=== PATIENT | male | born 1990 | race Two or more races ===

== ENCOUNTER 2020-01-18 01:51 | Inpatient (IN) | payer OTHER ==
[2020-01-18] VITALS (11 sets, daily range): BP systolic 97–146; BP diastolic 43–82
[~2020-01-18] VITALS: Ht 182.9 cm; Wt 133.8 kg
--- NOTE | 2020-01-18 01:55 | NUR ---
ED Nurse Note: Pt brought into ED from home by KALI RA 66 for c/o fentanyl overdose. Per EMS, pt used unknown amount of fentanyl and was found face down and unconscious in the kitchen. STEPHYD had to start ventilating pt in the field. STEPHYD gave pt 4mg narcan. Per EMS, pt also was given narcan nasally by girlfriend which made pt nose bleed prior to EMS arrival. Dried blood noted to pt nares/face. No trauma noted. Pt is breathing labored at this time, STEPHYD stopped ventilations by the time they reached the ED and pt was breathing on his own. Pt is aaox2. He is able to answer questions but is lethargic. Pt is not aware of what is going on and doesn't remember passing out. Pt connected to front desk monitor and into gown. EKG and ERMD bedside.
--- NOTE | 2020-01-18 02:00 | NUR ---
ED Nurse Note: After placement on decontaminator, pt oxygen saturation in low 80's. Pt placed on 15L oxygen via NRB. Pt oxygen saturation rised to 96% on NRB. Pt is more awake at this time, but unaware of what happened. Will continue to monitor pt.
--- NOTE | 2020-01-18 02:08 | Emergency Room Report ---
History of Present Illness General Chief Complaint: Overdose Source: Patient, EMS Present Illness HPI EMS was called by the patient's girlfriend. He has been using fentanyl. She tried to administer Narcan nasally but he started bleeding. EMS had to use a bag valve mask on the patient. They gave him 2 doses of IM Narcan and then 2 doses of IV. He is breathing on his own at this time and they do not need to continue the [id number]. The patient is answering questions. The patient denies any use of other drugs. The patient denies intent of self-harm. No fevers, chills, sore throat, chest pain, palpitations, nausea, vomiting, diarrhea, dysuria, abdominal pain, shortness of breath, joint pain, rashes, depression, anxiety, visual changes, dizziness, headache. Allergies: Coded Allergies: No Known Allergies (Unverified , 01/18/20) COVID-19 Screening Contact w/high risk pt: No Recent Travel to affected area: No Experienced COVID-19 symptoms?: No Patient History Past Medical History: see triage record Past Surgical History: other - Back surgery Social History: Reports: smoking, drug use - Fentanyl, see tox screen Reviewed Nursing Documentation: PMH: Agreed; PSxH: Agreed Nursing Documentation-PMH Past Medical History: Deferred Review of Systems All Other Systems: negative except mentioned in HPI Physical Exam Vital Signs Date Time Temp Pulse Resp B/P (MAP) Pulse Ox O2 Delivery O2 Flow Rate FiO2 01/18/20 01:51 97.9 115 19 146/72 (96) 96 Room Air Sp02 EP Interpretation: reviewed, normal General Appearance: no apparent distress, lethargic, obese Head: normocephalic Eyes: bilateral eye normal inspection, bilateral eye PERRL, bilateral eye EOMI ENT: moist mucus membranes Neck: supple Respiratory: chest non-tender, lungs clear, normal breath sounds, other - Slight tachypnea Cardiovascular #1: tachycardia Cardiovascular #2: 2+ radial (R) Gastrointestinal: normal inspection, non tender, no mass, non-distended, decreased bowel sounds, overweight Genitourinary: no CVA tenderness Musculoskeletal: back normal, normal range of motion, no calf tenderness Neurologic: alert, motor strength/tone normal, processing spec III-XII nml as tested, DTRs symmetric, oriented x3, sensory intact, cerebellar normal, speech normal Psychiatric: no suicidal/homicidal ideation, depressed affect Skin: no rash, warm/dry Medical Decision Making Diagnostic Impression: Primary Impression: Drug overdose Qualified Codes: T50.901A - Poisoning by unspecified drugs, medicaments and biological substances, accidental (unintentional), initial encounter Additional Impressions: Pneumonia Qualified Codes: J18.9 - Pneumonia, unspecified organism Hypoxia Renal failure Qualified Codes: N17.9 - Acute kidney failure, unspecified Rhabdomyolysis Qualified Codes: M62.82 - Rhabdomyolysis ER Course Patient presents after responding to Narcan in the field with alleged fentanyl overdose. Differential includes acute myocardial infarction, fentanyl excess, electrolyte imbalance, aspiration pneumonia amongst others. Patient evaluated with EKG, chest x-ray and labs. Patient placed on a youth nutritional monitor. We may to need to administer further doses of Narcan. EKG sinus tachycardia with nonspecific ST-T wave changes. No injury. White count elevated. Renal failure. Bicarbonate low. Urine tox screen negative. Elevated CPK. Patient hypoxemic. Awake. Increased O2. 205 Chest x-ray with left-sided infiltrate. Blood cultures and antibiotics begun. Elevated lactic acid. Fluids begun. Normal mentation and good capillary fill. X-ray more consistent with aspiration. Patient improved on oxygen. Due to elevated CPK and renal failure alkalinization of urine instituted. Patient admitted to telemetry. COVID testing done. Suspicion is low. (Of note patient's girlfriend in the emergency department presumptively secondary to cyanide. Her tox screen was positive for methamphetamine. The patient denies any question of whether anyone intended them harm. [employer] notified. The fact that his tox screen was negative for methamphetamine makes the possibility that she ingested a different drug that then he did.) Laboratory Tests Test 01/18/20 02:00 01/18/20 03:30 01/18/20 03:40 White Blood Count 19.0 K/UL (4.8-10.8) H Red Blood Count 5.38 M/UL (4.70-6.10) Hemoglobin 16.6 G/DL (14.2-18.0) Hematocrit 46.3 % (42.0-52.0) Mean Corpuscular Volume 86 FL (80-99) Mean Corpuscular Hemoglobin 30.8 PG (27.0-31.0) Mean Corpuscular Hemoglobin Concent 35.8 G/DL (32.0-36.0) Red Cell Distribution Width 10.9 % (11.6-14.8) L Platelet Count 346 K/UL (150-450) Mean Platelet Volume 7.0 FL (6.5-10.1) Neutrophils (%) (Auto) % (45.0-75.0) Lymphocytes (%) (Auto) % (20.0-45.0) Monocytes (%) (Auto) % (1.0-10.0) Eosinophils (%) (Auto) % (0.0-3.0) Basophils (%) (Auto) % (0.0-2.0) Differential Total Cells Counted 100 Neutrophils % (Manual) 50 % (45-75) Lymphocytes % (Manual) 43 % (20-45) Monocytes % (Manual) 4 % (1-10) Eosinophils % (Manual) 3 % (0-3) Basophils % (Manual) 0 % (0-2) Band Neutrophils 0 % (0-8) Platelet Estimate Adequate Platelet Morphology Normal Sodium Level 139 MMOL/L (136-145) Potassium Level 3.6 MMOL/L (3.5-5.1) Chloride Level 101 MMOL/L (98-107) Carbon Dioxide Level 19 MMOL/L (21-32) L Anion Gap 19 mmol/L (5-15) H Blood Urea Nitrogen 22 mg/dL (7-18) H Creatinine 2.0 MG/DL (0.55-1.30) H Estimated Glomerular Filtration Rate 39.2 mL/min (>60) Glucose Level 204 MG/DL (74-106) H Calcium Level 9.0 MG/DL (8.5-10.1) Total Bilirubin 0.3 MG/DL (0.2-1.0) Aspartate Amino Transferase (AST) 167 U/L (15-37) H Alanine Aminotransferase (ALT) 85 U/L (12-78) H Alkaline Phosphatase 81 U/L (46-116) Total Creatine Kinase 3718 U/L (26-308) H Troponin I -0.070 ng/mL (0.000-0.056) Total Protein 7.9 G/DL (6.4-8.2) Albumin 4.1 G/DL (3.4-5.0) Globulin 3.8 g/dL Albumin/Globulin Ratio 1.1 (1.0-2.7) Salicylates Level 3.7 ug/mL (2.8-20) Acetaminophen Level < 2 MCG/ML (10-30) L Serum Alcohol < 3 mg/dL Lactic Acid Level Pending Urine Color Pale yellow Urine Appearance Clear Urine pH 6 (4.5-8.0) Urine Specific [place] 1.020 (1.005-1.035) Urine Protein 3+ (NEGATIVE) H Urine Glucose (UA) Negative (NEGATIVE) Urine Ketones 3+ (NEGATIVE) H Urine Blood 4+ (NEGATIVE) H Urine Nitrite Negative (NEGATIVE) Urine Bilirubin Negative (NEGATIVE) Urine Urobilinogen Normal MG/DL (0.0-1.0) Urine Leukocyte Esterase Negative (NEGATIVE) Urine RBC 10-15 /HPF (0 - 0) H Urine WBC 0 /HPF (0 - 0) Urine Squamous Epithelial Cells None /LPF (NONE/OCC) Urine Bacteria Moderate /HPF (NONE) H Urine Fine Granular Casts 0-2 /LPF (NONE) H Urine Coarse Granular Casts 0-2 /LPF (NONE) H Urine Opiates Screen Pending Urine Barbiturates Screen Pending Phencyclidine (PCP) Screen Pending Urine Amphetamines Screen Pending Urine Benzodiazepines Screen Pending Urine Cocaine Screen Pending Urine Marijuana (THC) Screen Pending EKG Diagnostic Results Rate: tachycardiac Rhythm: NSR ST Segments: no acute changes Rhythm Strip Diag. Results EP Interpretation: yes Rhythm: no PVC's, no ectopy, other - Sinus tachycardia Chest X-Ray Diagnostic Results Chest X-Ray Diagnostic Results : Chest X-Ray Ordered: Yes # of Views/Limited/Complete: 1 View Indication: Other EP Interpretation: Yes Interpretation: no effusion, no pneumothorax, other - L infiltrate Impression: Other Electronically Signed by: Electronically signed by Fernando Slater MD Last Vital Signs Date Time Temp Pulse Resp B/P (MAP) Pulse Ox O2 Delivery O2 Flow Rate FiO2 01/18/20 13:00 Nasal Cannula 4.0 01/18/20 12:00 99.5 114 24 117/56 (76) 100 01/18/20 11:17 50 Status: improved Disposition: ADMITTED INPATIENT Condition: Serious Scripts No Active Prescriptions or Reported Meds Fernando Slater MD Jan 18, 2020 02:08
[2020-01-18 02:19] LABS: HEMATOCRIT 46.3 % (42.0-52.0); HEMOGLOBIN 16.6 G/DL (14.2-18.0); MEAN CORPUSCULAR VOLUME 86 FL (80-99); PLATELET COUNT 346 K/UL (150-450); RED BLOOD COUNT 5.38 M/UL (4.70-6.10); RED CELL DISTRIBUTION WIDTH 10.9 % (11.6-14.8)
[2020-01-18 02:25] LABS: ANION GAP 19 mmol/L (5-15); BLOOD UREA NITROGEN 22 mg/dL (7-18); CARBON DIOXIDE 19 MMOL/L (21-32); CHLORIDE 101 MMOL/L (98-107); POTASSIUM 3.6 MMOL/L (3.5-5.1); SODIUM 139 MMOL/L (136-145)
[2020-01-18 02:38] LABS: ALANINE AMINOTRANSFERASE 85 U/L (12-78); ALBUMIN 4.1 G/DL (3.4-5.0); ALBUMIN/GLOBULIN RATIO 1.1 (1.0-2.7); ALKALINE PHOSPHATASE 81 U/L (46-116); ASPARTATE AMINO TRANSFERASE 167 U/L (15-37); BILIRUBIN,TOTAL 0.3 MG/DL (0.2-1.0); CREATINE KINASE 3718 U/L (26-308)
--- NOTE | 2020-01-18 02:40 | NUR ---
ED Nurse Note: Pt is more awake and alert at this time. He is able to ask questions and answer them more appropriately then original presentation in ED. Pt provided with warm blanket. Pt vital signs are stable at this time for pt, ERMD aware. No acute distress noted. Will continue to monitor.
[2020-01-18] MEDS ORDERED: Piperacillin/Tazobactam 3.375 GM in NS 110 ML IVPB ONE (03:15)
[2020-01-18] MEDS ORDERED: Vancomycin 1.5 GM in NS 275 ML IVPB ONE (03:15)
--- NOTE | 2020-01-18 03:40 | NUR ---
ED Nurse Note: Pt is awake and alert x 4 at this time. He is now able to answer questions regarding person, place, time and purpose. Pt appears more calm and cooperative. No acute distress noted. Will continue to monitor. Pt vitals are stable as charted. Safety measures in place.
--- NOTE | 2020-01-18 03:45 | NUR ---
ED Nurse Note: Pt denies any medical hx and does not take home medications.
[2020-01-18 03:52] LABS: APPEARANCE,URINE CLEAR; BILIRUBIN, URINE NEGATIVE (NEGATIVE); COLOR,URINE PALE YELLOW; GLUCOSE, URINE (UA) NEGATIVE (NEGATIVE); KETONES,URINE 3+ (NEGATIVE); LEUKOCYTE ESTERASE ,URINE NEGATIVE (NEGATIVE); NITRITE,URINE NEGATIVE (NEGATIVE); PH,URINE 6 (4.5-8.0); PROTEIN,URINE 3+ (NEGATIVE); UROBILINOGEN,URINE NORMAL MG/DL (0.0-1.0)
--- NOTE | 2020-01-18 04:00 | NUR ---
ED Nurse Note: Pt c/o chest pain and had 1x episode of vomiting, ERMD made aware.
[2020-01-18] MEDS ORDERED: Sodium Bicarbonate 150 ML in D5W 1000ml 1,000 ML IV SCH ×2 (04:15→09:00)
--- NOTE | 2020-01-18 04:25 | NUR ---
ED Nurse Note: Medication order for Sodium Bicarb checked with ERMD and electrical discharge machine operator 2x prior to initiating infusion.
--- NOTE | 2020-01-18 04:40 | NUR ---
ED Nurse Note: Pt is awake and alert x 4. Pt given ice chips after being cleared by ERMD. Pt vitals stable as charted. Pt is in no acute distress at this time. IV medications infusing as ordered. Safety measures in place. Will continue to monitor.
--- NOTE | 2020-01-18 05:50 | NUR ---
ED Nurse Note: Report given to MATTEO Salomon.
--- NOTE | 2020-01-18 06:19 | NUR ---
ED Nurse Note: Pt is stable to be transported to unit at this time per ERMD. Droplet precuations taken for transport. Pt is awake and alert x4, no acute distress noted. Pt being transported on 15L oxygen via NRB. Pt taken to unit via tech and RN, connected to laboratory monitor. Pt belongings sent with pt. VSS. IVs patent and intact. IV medications infusing at this time and endorsed care to receiving RN.
--- NOTE | 2020-01-18 06:31 | NUR ---
NURSE NOTES: Pt was transferred from ED to SDU via gurney without incident. Belongings were checked at bedside. Report from MATTEO Verde. Pt observed resting in bed and is alert and oriented x3-4 but remains lethargic. Pt is on a nonrebreather at 15L with a current O2 saturation of 96% and admits to SOB. Rales heard in bilateral lower lobes upon auscultation. Pt noted to be ST on tele monitor with a HR of 112, no acute s/sx of distress noted. Skin remains intact. L AC 20g and R wrist 20g IV catheters noted which remain intact, asymptomatic and patent; Bicarb infusing from ED. Diagnostics reviewed. Pt remains resting in bed; bed remains in lowest position with safety wheels engaged, bed alarm activated. call light within reach and side rails up x3. Pt agrees to use call light despite being ambulatory. Pt placed immediately on droplet precautions. Will call admitting MD for orders. Will continue to monitor.
[2020-01-18] MEDS ORDERED: cefTRIAXone 1 GM in D5W 55 ML IVPB SCH (07:00)
--- NOTE | 2020-01-18 07:04 | NUR ---
NURSE NOTES: Spoke to Dr Johnson covering for Dr Toribio Admission ordered received and carried out.
--- NOTE | 2020-01-18 07:18 | NUR ---
HAND-OFF: Report given to MATTEO Lozano. Endorsed plan of care.
--- NOTE | 2020-01-18 07:19 | NUR ---
NURSE NOTES: Received patient in bed. Awake, on non rebreather mask. Call light within reach. On IVF per order. On droplet isolation precaution. Will continue plan of care.
[2020-01-18] MEDS: cefTRIAXone 1 GM in D5W 55 ML IVPB SCH (08:51)
[2020-01-18] MEDS: Pantoprazole Inj IVP SCH (08:59)
[2020-01-18] MEDS: Heparin 5000 units/ml inj SUBQ SCH ×2 (09:00→20:32)
--- NOTE | 2020-01-18 10:00 | NUR ---
NURSE NOTES: Dr. Slater at bedside. Emotional support provided.
[2020-01-18] MEDS: Albuterol/Ipratropium 3ml neb HHN PRN ×3 (10:07→15:17)
--- NOTE | 2020-01-18 10:36 | Diagnostic Imaging Report ---
Indication: Dyspnea Comparison: None A single view chest radiograph was obtained. Findings: There is a left pulmonary infiltrate in the perihilar region suspicious for pneumonia. Correlate clinically. Lung volumes are low bilaterally. Heart size is accentuated probably related to this. The bones are unremarkable. IMPRESSION: Moderate left pneumonia
--- NOTE | 2020-01-18 13:17 | NUR ---
NURSE NOTES: Informed Dr. Toribio via telephone regarding ABG results. Patient was on veturi mask Fio2 50% during ABG was drawn. Patient is now tolerating nasal cannula at 4LPM. No new order obtained from Dr. Toribio.
--- NOTE | 2020-01-18 15:24 | NUR ---
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 97.9 HR 115 RR 19 B/P 146/72 NRM FIO2 100% WBC 19.0 AGAP 19 BUN 22 CR 2.2 LACTID ACID 3.10 AST 167 ALT 85 TCK 3718 TROP-0.071 CXR= LEFT LOBE PNA IS: IV BOLUS NS X 2 LITERS ADMITTED TO STEP DOWN @0412 STEP DOWN STATUS DCP RETURN HOME
--- NOTE | 2020-01-18 16:05 | NUR ---
NURSE NOTES: Informed Dr. Toribio via telephone that patient is asking for pain medicine and cough medicine. Dr. Toribio said no pain medication order. Robitussin with Codeine 1 teaspoon every 4 hours PRN order for cough obtained. Charge nurse made aware.
--- NOTE | 2020-01-18 16:29 | NUR ---
MUSIC SOUND LIGHT TECHNICIAN NOTE SW spoke w/ pt through telephone ext [phone]. Pt sounded teary and emotional. SW provided SW's extension number and encouraged pt to vent his feelings to SW as needed. This SW will F/U w/ substance abuse consult when pt is emotional stable to discuss such topic. Emergency contact; Shaun Ballard (father) [phone] Signed: 01/18/20 at 1634 by DANIE VILA <Co-Signature Required> Addendum: 01/18/20 at 1714 by DANIE VILA emotionally stable*
[2020-01-18] MEDS: guaiFENesin w/Codeine 5ml Liq ud ORAL PRN ×2 (16:34→20:32)
--- NOTE | 2020-01-18 19:00 | NUR ---
NURSE NOTES: Received patient and report from MATTEO Lozano. Patient is observed resting in bed and remains alert and oriented x3-4. No pain noted upon assessment. Pt is on Venturi mask FiO2 45% with no s/sx of acute distress and an O2 saturation of 96%. Pt noted to be ST on tele monitor with a current HR of 110 with no s/sx of acute distress. R Wrist 20g and Left AC 20g IV catheters noted which remains asymptomatic, patent and intact. D5NS+20kcl currently infusing at 100mL/hr as ordered. Skin remains intact. Diagnostics reviewed. Pt remains resting in bed; Bed remains in the lowest position with the safety wheels engaged, call light within reach, side rails up x3 and bed alarm activated. Will continue plan of care. Will continue to monitor.
--- NOTE | 2020-01-18 19:10 | NUR ---
HAND-OFF: Report given to Anna Maynard RN.
--- NOTE | 2020-01-18 23:03 | NUR ---
NURSE NOTES: Pt c/o painful cough. Pt requests cough medication; administered as ordered. Will continue to monitor.
--- NOTE | 2020-01-18 23:42 | NUR ---
NURSE NOTES: Pt provided with a bed bath, linen change and oral care. Pt tolerated care well but remains depressed and refusing to eat. No suicidal ideation. Pt currently speaking with family on phone. Pt remains resting in bed; Bed remains in the lowest position with the safety wheels engaged, call light within reach, side rails up x3 and bed alarm activated. Will continue plan of care. Will continue to monitor.
--- NOTE | 2020-01-18 23:52 | NUR ---
NURSE NOTES: Heparin refused. Education provided but continues to refuse. Will continue to monitor.
[2020-01-19] MEDS: guaiFENesin w/Codeine 5ml Liq ud ORAL PRN ×6 (00:38→21:54)
[2020-01-19 01:00] VITALS: BP 112/80
--- NOTE | 2020-01-19 02:00 | History and Physical Report ---
DATE OF ADMISSION: 01/18/2020 REASON FOR ADMISSION: Overdose with respiratory distress. HISTORY OF PRESENT ILLNESS: This is a 29-year-old male with no significant prior medical history. He was brought into the emergency room early this morning after EMS was summoned by his girlfriend about him using fentanyl. He apparently was poorly responsive and the girlfriend tried to administer Narcan unsuccessfully. The patient was placed on a bag-valve mask by EMS and he was given Narcan with improved respiratory parameters subsequently. On arrival to the emergency room, he was alert and responsive. Unfortunately his girlfriend was also involved with drug abuse and later succumbed in the emergency room. PAST MEDICAL HISTORY: Unremarkable. MEDICATIONS: None. ALLERGIES: None known. FAMILY HISTORY: Noncontributory. SOCIAL HISTORY: Fentanyl drug use. Otherwise unremarkable. REVIEW OF SYSTEMS: Otherwise unremarkable. PHYSICAL EXAMINATION: GENERAL: Alert, extremely tearful, and in moderate respiratory distress with cough. VITAL SIGNS: Blood pressure 146/72, pulse 115, respirations 19, and afebrile. LUNGS: Coarse breath sounds. Rhonchi and rales. HEART: Regular rhythm. Rapid rate. Normal S1, S2. No murmur. ABDOMEN: Soft. EXTREMITIES: There is no edema. LABORATORY DATA: White count 19 and hemoglobin 16.6. Lactic acid was 3. Drug levels were negative for acetaminophen and salicylate and aspirin. Urinalysis was positive for ketones and blood. Cyanide level pending. ABG, pH 7.41, pCO2 37, and pO2 86. EKG with sinus tachycardia. Chest x-ray with left-sided pneumonia. IMPRESSION: 1. Fentanyl abuse and associated respiratory failure. 2. Aspiration pneumonia. 3. Sinus tachycardia. 4. Grieving reaction. 5. Acute renal failure. 6. Lactic acidosis. 7. Transaminitis. 8. Rhabdomyolysis. 9. Leukocytosis. PLAN: 1. Cardiac monitoring. 2. Respiratory support with BiPAP as needed and oxygenation. 3. Intravenous fluid hydration. 4. Antimicrobials. 5. DVT prophylaxis. 6. Stress ulcer prophylaxis. 7. Psychiatric evaluation. 8. Social service evaluation. 9. Follow up renal. 10. Follow up laboratory studies including serial lactic acid levels. Fernando Toribio M.D. DR: TAINA JOB#: [id number] CC:
[2020-01-19 04:00] VITALS: BP 118/84
--- NOTE | 2020-01-19 04:40 | NUR ---
NURSE NOTES: Pt noted to be coughing. Pt then requested PRN cough syrup. Administered Robitussin as ordered. No adverse effects noted. Will continue to monitor.
[2020-01-19 05:30] LABS: BASOPHILS % (AUTO) 0.8 % (0.0-2.0); HEMATOCRIT 38.3 % (42.0-52.0); HEMOGLOBIN 13.9 G/DL (14.2-18.0); LYMPHOCYTES % (AUTO) 15.3 % (20.0-45.0); MEAN CORPUSCULAR VOLUME 85 FL (80-99); MONOCYTES % (AUTO) 6.5 % (1.0-10.0); NEUTROPHILS % (AUTO) 75.4 % (45.0-75.0); PLATELET COUNT 224 K/UL (150-450); RED CELL DISTRIBUTION WIDTH 10.9 % (11.6-14.8)
[2020-01-19 06:03] LABS: ALANINE AMINOTRANSFERASE 61 U/L (12-78); ALBUMIN 3.1 G/DL (3.4-5.0); ALKALINE PHOSPHATASE 52 U/L (46-116); ANION GAP 7 mmol/L (5-15); ASPARTATE AMINO TRANSFERASE 89 U/L (15-37); BILIRUBIN,TOTAL 0.7 MG/DL (0.2-1.0); BLOOD UREA NITROGEN 10 mg/dL (7-18); CALCIUM 8.7 MG/DL (8.5-10.1); CARBON DIOXIDE 27 MMOL/L (21-32); CHLORIDE 104 MMOL/L (98-107); CREATININE 0.9 MG/DL (0.55-1.30); POTASSIUM 3.7 MMOL/L (3.5-5.1); SODIUM 138 MMOL/L (136-145)
[2020-01-19 06:09] LABS: CREATINE KINASE 2206 U/L (26-308)
--- NOTE | 2020-01-19 07:20 | NUR ---
NURSE NOTES: Received patient from MATTEO Vazquez. Patient is lying in bed. Contact and Droplet isolation precautions in place and followed through for R/O COVID-19. Patient is aox4, and lethargic. Patient is showing ST on the advertising internship. Patient is on 12 L via venturi mask at 45% and tolerating well o2 sat is 98%. Patient has a loud cough. Patient states that it is very painful. Patient is continent and able to use urinal and yellow urine. Patient has a L AC 20g and R Wrist 20g patent and flushing properly. Bed is in lowest position, alarmed and locked. Optimal HOB placement. Side rails x2, and call light is placed within reach. Will continue to monitor.
--- NOTE | 2020-01-19 07:32 | NUR ---
HAND-OFF: Report given to MATTEO Benitez. Pt remains stable at this time. Endorsed plan of care.
[2020-01-19 07:55] VITALS: BP 138/70
[2020-01-19] MEDS: Heparin 5000 units/ml inj SUBQ SCH ×2 (08:29→21:00)
[2020-01-19] MEDS: cefTRIAXone 1 GM in D5W 55 ML IVPB SCH (08:40)
[2020-01-19] MEDS: Pantoprazole Inj IVP SCH (08:41)
[2020-01-19 12:00] VITALS: BP 121/56
--- NOTE | 2020-01-19 13:46 | NUR ---
CASE MANAGEMENT: REVIEW 01/19/2020 SI:HYPOXIA. OVERDOSE. T 97.7 HR 118 RR 24 B/P 138/70 SATS 95% ON VENTURI MASK FIO2 50 LABS: WBC 11 GLU 111 AST 89 TOTAL CK 2206 COVID 19- PENDING IS:DEXTROSE IV @ 100 ML/HR PROTONIX IV QD CEFTRIAXONE IV Q24H SDU PLAN OF CARE: ISOLATION PRECAUTIONS SSW CONSULT PSYCH CONSULT
--- NOTE | 2020-01-19 13:56 | NUR ---
INSURANCE REVIEWS FAXED TO IPA: [facility] [place] P: [phone] F: [phone] (FAX ALL CLINICALS)
[2020-01-19 16:00] VITALS: BP 130/75
--- NOTE | 2020-01-19 19:02 | NUR ---
NURSE NOTES: Received patient and report from MATTEO Benitez. Patient is observed resting in bed and remains alert and oriented x3-4. No pain noted upon assessment. Pt is on Venturi mask FiO2 45% with no s/sx of acute distress and an O2 saturation of 97%. Pt noted to be ST on tele monitor with a current HR of 119 with no s/sx of acute distress. R Wrist 20g and Left AC 20g IV catheters noted which remains asymptomatic, patent and intact. D5NS+20kcl currently infusing at 100mL/hr as ordered. Skin remains intact. Diagnostics reviewed. Pt remains resting in bed; Bed remains in the lowest position with the safety wheels engaged, call light within reach, side rails up x3 and bed alarm activated. Will continue plan of care. Will continue to monitor.
--- NOTE | 2020-01-19 19:24 | NUR ---
HAND-OFF: Report given to MATTEO Vazquez. Patient in stable condition. Endorsed care.
[2020-01-19 20:00] VITALS: BP 122/82
--- NOTE | 2020-01-19 22:06 | NUR ---
NURSE NOTES: Pt noted to be coughing. Pt requested PRN Robuitussin, administered as prescribed. No adverse effects noted. Will continue to monitor.
[2020-01-20] VITALS: BP 124/80
--- NOTE | 2020-01-20 00:12 | NUR ---
NURSE NOTES: Pt provided with materials for a bed bath, oral care and linen change provided. Pt tolerated care well. Pt remains resting in bed; Bed remains in the lowest position with the safety wheels engaged, call light within reach, side rails up x3 and bed alarm activated. Will continue plan of care. Will continue to monitor.
[2020-01-20 04:00] VITALS: BP 132/80
--- NOTE | 2020-01-20 04:40 | NUR ---
NURSE NOTES: Pt requests PRN Robitussin for cough. Administered medication as ordered. No adverse effects noted. Will continue to monitor.
--- NOTE | 2020-01-20 07:12 | NUR ---
NURSE NOTES: HAND-OFF: Report given to MATTEO Dela Cruz. Pt remains stable at this time.
--- NOTE | 2020-01-20 07:15 | NUR ---
NURSE NOTES: Report received from Taylor Maynard RN.Pt resting in bed asleep but easily awakens with verbal and tactile stimuli,denies any c/o resp distress or discomfort on venturi mask 35% FIO2 .STach on the monitor,skin warm and dry ,IV sites x2 ,LW and LAC with IVF D5 NS + 20 meq KCL at 100 ml/hr,SR up x2,call light within reach at bedside,HOB elevated,bed lock in lowest position,will continue with plans of care.
[2020-01-20 08:00] VITALS: BP 124/44
--- NOTE | 2020-01-20 08:13 | Progress Note ---
DATE: 01/19/2020 CARDIOLOGY AND INTERNAL MEDICINE PROGRESS NOTE SUBJECTIVE: The patient is grieving the loss of his girlfriend from the overdose. He also was involved in yesterday. He is not suicidal. He still has cough, congestion, and shortness of breath with hypoxia. OBJECTIVE: VITAL SIGNS: Blood pressure 130/75, pulse 110, respirations 22, and afebrile. LUNGS: Bilateral breath sounds. Rhonchi, rales. CARDIAC: Regular rhythm and rate. Normal S1, S2. ABDOMEN: Soft, obese. EXTREMITIES: No edema. LABORATORY AND DIAGNOSTIC DATA: Monitor, sinus tachycardia. White count 11, hemoglobin 13.9. Sodium 138, potassium 3.7, bicarb 27, BUN 10, creatinine 0.9. Hemoglobin A1c 4.9. CK has decreased to 2200. IMPRESSION: 1. Fentanyl overdose. 2. Aspiration pneumonia. 3. Sepsis. 4. Rhabdomyolysis. 5. Grieving reaction. 6. Hypoxia. PLAN: 1. Respiratory hygiene. 2. Antimicrobials. 3. Volume support by IV route. 4. The patient is still being screened for COVID and remains on isolation. 5. Oxygenation. 6. Bronchodilators. 7. IV fluid hydration. 8. DVT prophylaxis. 9. Await COVID results to discontinue isolation. Fernando Toribio M.D. DR: SHANNA JOB#: [id number] CC:
[2020-01-20] MEDS: cefTRIAXone 1 GM in D5W 55 ML IVPB SCH (08:27)
[2020-01-20] MEDS: Heparin 5000 units/ml inj SUBQ SCH ×2 (08:29→20:55)
[2020-01-20] MEDS: Pantoprazole Inj IVP SCH (08:31)
[2020-01-20] MEDS: guaiFENesin w/Codeine 5ml Liq ud ORAL PRN ×4 (08:51→21:16)
--- NOTE | 2020-01-20 10:22 | NUR ---
CASE MANAGEMENT: REVIEW 01/20/2020 SI:HYPOXIA. OVERDOSE. T 97 HR 101 RR 20 B/P 124/44 SATS 98% ON 12L/VENTURI MASK LABS: COVID 19- PENDING IS:DEXTROSE IV @ 100 ML/HR PROTONIX IV QD CEFTRIAXONE IV Q24H SEROQUEL PO QHS SDU PLAN OF CARE: ISOLATION PRECAUTIONS
--- NOTE | 2020-01-20 10:24 | NUR ---
INSURANCE REVIEWS FAXED TO IPA: [facility] [place] P: [phone] F: [phone] (FAX ALL CLINICALS)
--- NOTE | 2020-01-20 10:52 | NUR ---
RADIOLOGY DEPT., CHEST X-RAY DONE.-P.DYE
[2020-01-20 10:54] LABS: BASOPHILS % (AUTO) 0.5 % (0.0-2.0); EOSINOPHILS % (AUTO) 3.8 % (0.0-3.0); HEMATOCRIT 38.8 % (42.0-52.0); HEMOGLOBIN 13.9 G/DL (14.2-18.0); LYMPHOCYTES % (AUTO) 20.4 % (20.0-45.0); MEAN CORPUSCULAR VOLUME 86 FL (80-99); MONOCYTES % (AUTO) 9.3 % (1.0-10.0); PLATELET COUNT 241 K/UL (150-450); RED BLOOD COUNT 4.53 M/UL (4.70-6.10); RED CELL DISTRIBUTION WIDTH 11.1 % (11.6-14.8); WHITE BLOOD COUNT 8.7 K/UL (4.8-10.8)
[2020-01-20 11:13] LABS: ALANINE AMINOTRANSFERASE 46 U/L (12-78); ALBUMIN 3.1 G/DL (3.4-5.0); ALBUMIN/GLOBULIN RATIO 0.8 (1.0-2.7); ALKALINE PHOSPHATASE 55 U/L (46-116); ANION GAP 8 mmol/L (5-15); ASPARTATE AMINO TRANSFERASE 47 U/L (15-37); BILIRUBIN,TOTAL 0.7 MG/DL (0.2-1.0); BLOOD UREA NITROGEN 8 mg/dL (7-18); CALCIUM 8.8 MG/DL (8.5-10.1); CARBON DIOXIDE 26 MMOL/L (21-32); CHLORIDE 104 MMOL/L (98-107); CREATINE KINASE 817 U/L (26-308); CREATININE 0.9 MG/DL (0.55-1.30); POTASSIUM 3.8 MMOL/L (3.5-5.1); SODIUM 138 MMOL/L (136-145)
[2020-01-20 12:00] VITALS: BP 120/71
--- NOTE | 2020-01-20 12:10 | NUR ---
TRANSFER TO FLOOR: Patient transferred to room 408-1, per bed awake,alert oriented in no distress.. Report given to Donya. Belongings and medications given to receiving RN. HAND-OFF: Report given to []. Addendum: 01/20/20 at 1551 by MICHELLE VELAZQUEZ RN incorrect time.
--- NOTE | 2020-01-20 12:32 | NUR ---
NURSE NOTES: Called office of Dr Toribio,spoke with optr Meme,informed that pt is negative for Covid and will be transferred to M[facility] when bed available.
--- NOTE | 2020-01-20 13:30 | NUR ---
CHILD [facility]ARE CENTER ASSISTANT DIRECTOR NOTE SW met w/ pt and discussed substance abuse and assessed pt's needs. Pt presents as A&O 4x and depressed. Pt resided w/ his girlfriend, Lisa at [address] [place] [address]. Pt is single, never , and has no children. 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 Per pt, he informed his hospitalization to his employer. Emergency contact provided: Shaun Ballard (father) [phone]. Pt admits using tobacco and hx of Fentanyl and Heroine abuse. Pt reports he has hx of IP substance abuse rehab program at [facility]. Pt reports he was sober for 7 months and relapsed prior to admission. Pt does not consider IP/OP substance abuse rehab programs and declined to receive the resource. Pt was asking about his girlfriend, Lisa. SW informed pt that her family was informed and made a visit to the hospital. Pt does not have a therapist/counselor. PT declined to receive resource on behavioral health. Pt denies SI/HI. SW encouraged pt to verbalize his needs/concerns and request to see a SW as needed. Pt verbalized understanding. SW to F/U as needed.
--- NOTE | 2020-01-20 14:00 | NUR ---
NURSE NOTES: Pt stable denies any complaints but declining to eat any solid food drinking only water and soda.
--- NOTE | 2020-01-20 15:10 | NUR ---
TRANSFER TO FLOOR: Patient transferred to 4 E [id number], per gibson,alert oriented in no distress. Report given to Aan RN. Belongings and medications given to receiving RN. . Family and or S/O informed of transfer.
--- NOTE | 2020-01-20 15:24 | Diagnostic Imaging Report ---
Indication: Shortness of breath Technique: XRAY Chest 1v Comparison: 01/18/2020 Findings: Stable cardiomegaly. Patchy opacities in the left midlung are decreased compared to the prior exam. There is however increased haziness of the pulmonary vascularity and increased patchy perihilar airspace opacities. No pleural effusion or pneumothorax. Osseous structures are stable. Impression: Decrease in patchy opacities in the left midlung. Increased haziness of the pulmonary vascularity and increased patchy perihilar airspace opacities. Findings may be related to fluid overload/pulmonary edema. Superimposed infection however is not excluded. Clinical correlation and follow-up recommended.
--- NOTE | 2020-01-20 15:30 | NUR ---
NURSE NOTES: Received report and patient from MATTEO Martinez. Belongings listed checked and verified with transferring nurse and patient. Patient on venturi mask, no signs of distress or labored breathing. IVs intact, patent, and saline locked. Bed in lowest position with call light in reach. Side rails up x3. Will continue with plan of care.
[2020-01-20 16:00] VITALS: BP 114/66
--- NOTE | 2020-01-20 19:29 | NUR ---
HAND-OFF: Report given to MATTEO Dela Cruz.
[2020-01-20 20:00] VITALS: BP 129/69
--- NOTE | 2020-01-20 20:00 | NUR ---
NURSE NOTES: Patient received in bed, no signs of acute distress with intermittent dry cough. On o2 via NC. No acute respiratory distress at this time. Call light and personal belongings within reach. Instructed to call for assistance. Will continue to monitor.
[2020-01-21] VITALS: BP 123/67
--- NOTE | 2020-01-21 00:30 | Progress Note ---
DATE: 01/20/2020 INTERNAL MEDICINE PROGRESS NOTE SUBJECTIVE: The patient still has cough and congestion, but feels better. Oxygen requirements have decreased. He still has low-grade fevers. Chest x-ray continues to reveal interstitial infiltrates and increased pulmonary venous pressure. PHYSICAL EXAMINATION: LUNGS: Bilateral breath sounds. Rhonchi. CARDIAC: Regular rhythm and rate. Normal S1 and S2. ABDOMEN: Soft. EXTREMITIES: No edema. LABORATORY DATA: Potassium 3.8, BUN 8, and creatinine 0.9. is down to 817. IMPRESSION: 1. Aspiration pneumonia. 2. Pulmonary venous congestion. 3. Fentanyl overdose. 4. Rhabdomyolysis. 5. Resolved lactic acidosis. PLAN: 1. Discontinue IV fluids. 2. Continue antimicrobials, bronchodilators, respiratory hygiene, and oxygen as well as DVT prophylaxis. 3. Reassess for diuresis. Fernando Toribio M.D. DR: WENDY JOB#: [id number] CC:
[2020-01-21] MEDS: guaiFENesin w/Codeine 5ml Liq ud ORAL PRN ×5 (03:06→21:37)
[2020-01-21 04:00] VITALS: BP 117/79
--- NOTE | 2020-01-21 07:30 | NUR ---
HAND-OFF: Report given to Rose Mary FELIPE.
[2020-01-21 08:00] VITALS: BP 117/66
[2020-01-21] MEDS: Heparin 5000 units/ml inj SUBQ SCH ×2 (08:20→21:00)
[2020-01-21] MEDS ORDERED: Pantoprazole Inj IVP SCH (09:00)
[2020-01-21] MEDS: cefTRIAXone 1 GM in D5W 55 ML IVPB SCH (09:39)
[2020-01-21 12:00] VITALS: BP 129/81
[2020-01-21] MEDS: Albuterol/Ipratropium 3ml neb HHN PRN (12:46)
--- NOTE | 2020-01-21 15:41 | NUR ---
HAND-OFF: Report given to Issac FELIPE.
--- NOTE | 2020-01-21 15:42 | NUR ---
NURSE NOTES: Received patient in bed, awake, alert and oriented x4. On oxygen with NC. Denies pain or discomfort. Patient asked for cough med due to on and off cough. Explained to the patient it was not due. Patient said he can wait. Will administer med as ordered. No wheezing, congestion or SOB. Call light within reach. Bed is in lowest position and locked. Will continue plan of care.
[2020-01-21 15:59] VITALS: BP 108/74
--- NOTE | 2020-01-21 19:30 | NUR ---
HAND-OFF: Report given to Minsu and endorsed plan of care.
--- NOTE | 2020-01-21 19:30 | NUR ---
NURSE NOTES: Patient awake, alert, and verbally responsive. Breathing unlabored on 2L O2 via NC. Denies pain or discomfort at this time. IV noted on left antecubital and right wrist intact and patent. Bed placed at the lowest with alarm, brake, and siderails up for safety. Call light placed within reach. Will continue to monitor.
[2020-01-21 20:00] VITALS: BP 118/72
--- NOTE | 2020-01-21 20:00 | NUR ---
NURSE NOTES: Removed left antecubital IV due to infiltration. IV site red, puffy, erythema, and tender. Elevated and provided ice pack. Right wrist IV leaking. Informed patient that new IV placement might be necessary. Patient verbalized understanding and agreed.
--- NOTE | 2020-01-21 20:30 | NUR ---
NURSE NOTES: Attempted two IV insertion placement. Was not able to establish IV access. Patient declined to further IV placement at this time, but agreed to attempt again in the morning. No IV or IVF scheduled. Will continue to monitor at this time.
--- NOTE | 2020-01-21 23:33 | Psych Consult Progress Note ---
Psychiatry Progress Note Psychiatry Progress Note Subjective j id#[id number] Medications Current Medications Medications (Trade) Dose Ordered Sig/Armando Route PRN Reason Start Time Stop Time Status Last Admin Dose Admin Albuterol/ Ipratropium (Albuterol/ Ipratropium) 3 ml Q4H PRN HHN Shortness of Breath 01/20/20 15:24 01/25/20 15:23 01/21/20 12:46 Ceftriaxone Sodium 1 gm/ Dextrose 55 ml @ 110 mls/hr Q24H IVPB 01/21/20 09:00 01/25/20 06:59 01/21/20 09:39 Famotidine (Pepcid) 20 mg BID ORAL 01/21/20 09:00 04/20/20 08:59 01/21/20 17:21 Guaifenesin/ Codeine Phosphate (Robitussin with codeine) 5 ml Q4H PRN ORAL For Cough 01/20/20 15:24 02/19/20 15:23 01/21/20 21:37 Heparin Sodium (Porcine) (Heparin 5000 units/ml) 5,000 units EVERY 12 HOURS SUBQ 01/20/20 21:00 03/03/20 08:59 Quetiapine Fumarate (SEROqueL) 50 mg BEDTIME ORAL 01/20/20 21:00 03/04/20 20:59 01/21/20 21:35 Allergies: Coded Allergies: No Known Allergies (Unverified , 01/18/20) Objective Data Height (Feet): 6 Height (Inches): 0.00 Weight (Pounds): 295 Jai Estrella MD Jan 21, 2020 23:33
--- NOTE | 2020-01-22 02:44 | Progress Note ---
DATE: 01/18/2020 SUBJECTIVE: The patient has less congestion, cough, and shortness of breath. Oxygen requirements have been decreased significantly. OBJECTIVE: LUNGS: Few rhonchi. HEART: Regular rhythm and rate. Normal S1, S2. ABDOMEN: Soft. EXTREMITIES: No edema. LABORATORY DATA: Oxygen saturation 95% on 2 liters. Blood pressure 108/74, heart rate 99, respiratory rate 20. IMPRESSION: 1. Fentanyl overdose. 2. Respiratory failure, now status post extubation. 3. Aspiration pneumonia. 4. Hypoxia. 5. Rhabdomyolysis, recovering. 6. Mild protein-calorie malnutrition. 7. Lactic acidosis, resolved. PLAN: 1. Taper oxygen off as able. 2. Antimicrobials. 3. Respiratory hygiene. 4. Repeat chest radiograph. 5. Discharge planning. 6. Drug counseling. Fernando Toribio M.D. DR: Allison JOB#: [id number] CC:
--- NOTE | 2020-01-22 03:29 | Progress Note ---
DATE: 01/21/2020 SUBJECTIVE: I have seen the patient on 01/19/2020 and dictated; however, the dictation is not uploaded, will follow up on Thursday with medical record. The patient is doing better today. Still grieving. Was tearful when he was speaking about his girlfriend. Today, he has questions about what happened or how his girlfriend in the emergency room. The patient presented with depressed mood, anhedonia, worthlessness, and hopelessness. He has no . He will be attending substance use anonymous groups after discharge. He does not want to go to any drug rehabilitation. He relapsed after eight months of being sober. The patient is not suicidal or homicidal ideation. The patient is disheveled, cooperative, and pleasant. MENTAL STATUS EXAMINATION: Alert and oriented times self, place, situation, and date. Mood is depressed. Affect is blunted, congruent with mood. Thought process is concrete. Thought content, no suicidal or homicidal ideation. Cognition is intact. Insight and judgment are fair. ASSESSMENT: 1. Major depressive disorder. 2. Substance use disorder. PLAN: 1. The patient will continue Seroquel 50 at bedtime. 2. He does not want to take any antidepressant. 3. The patient is not an imminent danger to self or others. 4. Provide the patient with reality orientation and supportive therapy. Jai Estrella M.D. DR: ZIA JOB#: [id number] CC: BRIDGER
[2020-01-22] MEDS: guaiFENesin w/Codeine 5ml Liq ud ORAL PRN ×5 (03:32→21:22)
[2020-01-22 04:00] VITALS: BP 108/62
--- NOTE | 2020-01-22 06:02 | NUR ---
NURSE NOTES: Patient desaturates to 85% on room air. Was not able to titrate the oxygen. Will continue to monitor.
[2020-01-22] MEDS: Albuterol/Ipratropium 3ml neb HHN PRN (06:38)
--- NOTE | 2020-01-22 06:45 | NUR ---
NURSE NOTES: patient continues to desaturate. patient said he feel short of breath and chest tightening. called respiratory therapist for breathing treatment. patient placed on venturi mask on 50% with 15L O2. patient saturated 93% for short time and desaturates again. called RT again. Patient currently arousable, awake, and verbally responsive. Will continue to monitor.
--- NOTE | 2020-01-22 07:38 | NUR ---
HAND-OFF: Report given to MATTEO Bazzi. Plan of care endorsed. Made aware of desaturation.
[2020-01-22 08:00] VITALS: BP 112/62
--- NOTE | 2020-01-22 08:00 | NUR ---
NURSE NOTES: Patient seen on rounds, in bed with Venturi Mask at 14lpm, sats 97-98%, patient reports relief of shortness of breath after PRN breathing tx. Appears calm, no c/o of pain. Encouraged deep breathing. Still noted with dry, non-productive cough. PIV on right forearm patent and intact. Left arm where previous IV site was elevated and monitored for s/sx of infiltration. Bed low and locked, side rails up x2, call light within reach. Will continue to monitor.
[2020-01-22] MEDS: Heparin 5000 units/ml inj SUBQ SCH ×2 (09:00→21:00)
[2020-01-22] MEDS: cefTRIAXone 1 GM in D5W 55 ML IVPB SCH (09:07)
[2020-01-22 12:00] VITALS: BP 115/72
--- NOTE | 2020-01-22 12:00 | NUR ---
NURSE NOTES: Patient sats consistent at 97-98% on Venturi mask. Informed RT and attempted to titrate down O2 and shift to regular mask.
--- NOTE | 2020-01-22 13:20 | NUR ---
NURSE NOTES: Patient unable to tolerate titration of O2, sats 90%. Informed RT and patient shifted back to Venturi mask. PRN antitussives administered. Will inform Dr. Toribio.
[2020-01-22 16:00] VITALS: BP 116/68
--- NOTE | 2020-01-22 16:45 | NUR ---
NURSE NOTES: Dr. Toribio made rounds to see patient. Relayed patient not being able to tolerate oxygen weaning. Also notified him of phlebitis on left upper arm. Received orders to administer one time dose of Lasix 20mg IV and K-dur PO. Also received orders to start on Vancomycin IV, and collect sputum culture and labs, CXR in AM. Orders noted and carried out.
[2020-01-22] MEDS ORDERED: Tubing IV Secondary IV ONE (17:30)
[2020-01-22] MEDS ORDERED: NS 275ml ONE (17:30)
[2020-01-22] MEDS: Vancomycin 1.5gm/NS Premix q24h IVPB SCH (17:33)
--- NOTE | 2020-01-22 19:35 | NUR ---
NURSE NOTES: RECEIVED PATIENT FROM MATTEO DUMONT. PATIENT IS AWAKE, AAOX4, ON VENTURI MASK 15L, O2 AT 96%, DENIES SOB AND PAIN. IV ON RIGHT UPPER ARM INTACT AND PATENT. REDNESS NOTED ON LEFT ARM, WARM TO TOUCH. BED IS LOCKED AND LOW, BED ALARMS ACTIVE, SIDE RAILS UPX2 AND CALL LIGHT IS WITHIN REACH, WILL CONTINUE TO MONITOR.
--- NOTE | 2020-01-22 19:37 | NUR ---
HAND-OFF: Report given to MATTEO Hale.
[2020-01-22 20:00] VITALS: BP 113/77
[2020-01-23] VITALS: BP 117/70
[2020-01-23] MEDS: Vancomycin 1.5gm/NS Premix q24h IVPB SCH ×3 (02:00→18:20)
--- NOTE | 2020-01-23 02:00 | Progress Note ---
DATE: 01/22/2020 INTERNAL MEDICINE PROGRESS NOTE SUBJECTIVE: The patient has pain, swelling, and warmth with redness over the left upper extremity at the site of prior IV. The patient remains increasingly hypoxic and congested. PHYSICAL EXAMINATION: VITAL SIGNS: Blood pressure 115/72, pulse 91, respirations 20, afebrile. LUNGS: Bilateral rales and rhonchi. CARDIOVASCULAR: Regular rate and rhythm. Normal S1, S2. ABDOMEN: Soft. EXTREMITIES: Left upper extremity flexor surface proximally with redness, warmth and edema. IMPRESSION: 1. Aspiration pneumonia. 2. Fentanyl overdose. 3. Left upper extremity phlebitis. 4. Hypoxia. PLAN: 1. Nasal oxygen. 2. Diuresis. 3. Antimicrobials. 4. Add vancomycin. 5. Hot pack to left upper extremity. Fernando Toribio M.D. DR: NATALI JOB#: [id number] CC:
[2020-01-23 04:00] VITALS: BP 121/64
[2020-01-23] MEDS: guaiFENesin w/Codeine 5ml Liq ud ORAL PRN ×4 (06:12→20:47)
[2020-01-23 06:41] LABS: BASOPHILS % (AUTO) 0.9 % (0.0-2.0); EOSINOPHILS % (AUTO) 4.9 % (0.0-3.0); HEMATOCRIT 40.9 % (42.0-52.0); HEMOGLOBIN 14.7 G/DL (14.2-18.0); LYMPHOCYTES % (AUTO) 22.9 % (20.0-45.0); MEAN CORPUSCULAR VOLUME 85 FL (80-99); MONOCYTES % (AUTO) 7.5 % (1.0-10.0); NEUTROPHILS % (AUTO) 63.9 % (45.0-75.0); PLATELET COUNT 272 K/UL (150-450); RED BLOOD COUNT 4.82 M/UL (4.70-6.10); RED CELL DISTRIBUTION WIDTH 10.6 % (11.6-14.8); WHITE BLOOD COUNT 10.1 K/UL (4.8-10.8)
[2020-01-23 07:09] LABS: ALANINE AMINOTRANSFERASE 52 U/L (12-78); ALBUMIN 3.2 G/DL (3.4-5.0); ALBUMIN/GLOBULIN RATIO 0.8 (1.0-2.7); ALKALINE PHOSPHATASE 61 U/L (46-116); ANION GAP 11 mmol/L (5-15); ASPARTATE AMINO TRANSFERASE 38 U/L (15-37); BILIRUBIN,TOTAL 0.7 MG/DL (0.2-1.0); BLOOD UREA NITROGEN 15 mg/dL (7-18); CALCIUM 9.6 MG/DL (8.5-10.1); CARBON DIOXIDE 27 MMOL/L (21-32); CHLORIDE 101 MMOL/L (98-107); POTASSIUM 3.7 MMOL/L (3.5-5.1); SODIUM 139 MMOL/L (136-145)
--- NOTE | 2020-01-23 07:10 | NUR ---
NURSE NOTES:handoff received from Moriah,RN. Patient received sleeping in bed, with venturi mask at 15 liters. No acute signs of distress noted. patient has R hand IV saline locked. Bed in the low and locked position with call light within reach, will continue to monitor patient.
--- NOTE | 2020-01-23 07:56 | NUR ---
HAND-OFF: Report given to MATTEO ESTRADA.
[2020-01-23 08:00] VITALS: BP 119/67
[2020-01-23] MEDS: Heparin 5000 units/ml inj SUBQ SCH ×2 (09:00→20:39)
--- NOTE | 2020-01-23 09:00 | Consultation ---
DATE OF CONSULTATION: 01/19/2020 system being down last night, and I was not able to access medical records from home. HISTORY OF PRESENT ILLNESS: The patient is an 29-year-old male with a history of substance abuse disorder, specifically opiate and drug use as well as major depressive disorder, who has been admitted to the hospital after he had an overdose on opiate, specifically fentanyl. He was with his girlfriend at her house when he overdosed. The girlfriend called 911. brought into the emergency room. The patient in the emergency room was responsive and the girlfriend. The patient was depressed, has anhedonia, worthlessness, anxiety, insomnia, stated that he has been off of his psychotropic medications. He stated he has had adverse reaction to SSRIs and is reluctant to take any. He does not have any suicidal or homicidal ideation. No psychotic or manic symptoms. PAST PSYCHIATRIC HISTORY: 1. Major depressive disorder. 2. Anxiety disorder. 3. No suicidal ideation. 4. No psychiatric hospitalization. He stated that Seroquel has worked for him in the past and requested to take only Seroquel. PAST MEDICAL HISTORY: Nonsignificant. ALLERGIES: No known drug allergies. SUBSTANCE ABUSE HISTORY: Opiate as well. Recently he has overdosed on fentanyl. MENTAL STATUS EXAMINATION: The patient is alert, oriented times self, place, situation, and date. Mood is depressed. Affect is tearful. Thought process is linear and goal oriented. Thought content, no suicidal or homicidal ideation. Cognition is intact. Insight and judgment are fair. ASSESSMENT: Waldron I Opiate dependence. Major depressive disorder. Waldron II Deferred. Waldron III Pneumonia. Waldron IV Low. Waldron V 50 PLAN: 1. Start the patient on Seroquel 50 mg at bedtime. 2. The patient is not imminent danger to self or others. 3. Provide the patient with reality orientation. 4. The patient should be discharged when medically cleared. Jai Estrella M.D. DR: Gena JOB#: [id number] CC: BRIDGER
[2020-01-23] MEDS: cefTRIAXone 1 GM in D5W 55 ML IVPB SCH (09:11)
[2020-01-23] MEDS: Albuterol/Ipratropium 3ml neb HHN PRN (09:23)
--- NOTE | 2020-01-23 10:13 | NUR ---
RADIOLOGY: PCXR COMPLETED 1000 HRS. NF
--- NOTE | 2020-01-23 11:30 | NUR ---
RD ASSESSMENT & RECOMMENDATIONS SEE CARE ACTIVITY FOR COMPLETE ASSESSMENT DAILY ESTIMATED NEEDS: Needs based on pulmonary 93kg abw 20-25 kcals/kg 3084-8169 total kcals 1-1.5 g protein/kg 93-140 g total protein On lasix, fluid per MD NUTRITION DIAGNOSIS: Altered nutrition related lab values r/t clinical status as evidenced by elev Creat kinase (now trending down 817), elev LFT's. CURRENT DIET: regular PO DIET RECOMMENDATIONS: Low Na diet ADDITIONAL RECOMMENDATIONS: 1) Recalibrate bed scale or obtain a standing weight Pt on lasix 2) Monitor lytes on lasix 3) Add snacks w/ variable po intake
[2020-01-23 12:00] VITALS: BP 113/72
--- NOTE | 2020-01-23 12:34 | Diagnostic Imaging Report ---
Indication: Dyspnea Comparison: 01/20/2020 A single view chest radiograph was obtained. Findings: There is a right perihilar basilar infiltrate. There may be a left perihilar infiltrate also. Lung volumes are low. Heart is enlarged. Pulmonary vascularity is normal. IMPRESSION: Right basilar pneumonia. Questionable left perihilar pneumonia.
--- NOTE | 2020-01-23 15:08 | NUR ---
INSURANCE REVIEWS FAXED TO IPA: [facility] [place] P: [phone] F: [phone] (FAX ALL CLINICALS)
--- NOTE | 2020-01-23 15:45 | Consultation ---
DATE OF CONSULTATION: 01/23/2020 PULMONARY CONSULTATION CONSULTING PHYSICIAN: Royal Rebolledo M.D. HISTORY OF PRESENT ILLNESS: This is a 29-year-old male who was admitted to the hospital as of 01/19/2020. Apparently had used fentanyl and was unresponsive. He was given Narcan and then was placed on a bag-valve mask. It is noted that his girlfriend was also involved with the substance and later succumbed. PAST MEDICAL HISTORY: None. MEDICATIONS: Currently none except in-hospital. ALLERGIES: None. SOCIAL HISTORY: Admits to drug abuse. REVIEW OF SYSTEMS: Denies any headaches, hematemesis, melena, or hematochezia. PHYSICAL EXAMINATION: GENERAL: A 29-year-old male. HEENT: Unremarkable. CHEST: Shows decreased breath sounds bilaterally with normal heart sounds. ABDOMEN: Soft. EXTREMITIES: There is no edema. VITAL SIGNS: O2 saturation 93% to 95% on 15 L Venturi mask, blood pressure 120/60, heart rate 84, respirations 18. LABORATORY DATA: Lab testing shows normal CBC and BMP. Most recent x-ray chest shows suspicion for pulmonary edema. IMPRESSION: 1. Suspect mild pulmonary edema. 2. Hypoxemia. DISCUSSION: Continue breathing treatments and cough suppressants. I will discontinue IV fluids and provide further diuresis. He did receive Lasix yesterday. We will increase. We will follow carefully. Royal Rebolledo M.D. DR: MISTY JOB#: [id number] CC:
--- NOTE | 2020-01-23 15:58 | NUR ---
CASE MANAGEMENT:REVIEW 01/21/2020 SI;ASPIRATION PNA. PULMONARY VENOUS CONGESTION. FENTANYL OVERDOSE. RHABDOMYOLYSIS. 99.2 99 20 108/74 96% 12L VENTURI NO LABS AVAILABLE IS;VANCOMYCIN IV Q8 HRS ROCEPHIN IV Q24 HRS PEPCID PO BID HEPARIN SUBQ BID DUO NEB HHN Q4 HRS PRN MED SURG STATUS DCP;FROM HOME CASE MANAGEMENT:REVIEW 01/22/2020 SI;ASPIRATION PNA. PULMONARY VENOUS CONGESTION. FENTANYL OVERDOSE. RHABDOMYOLYSIS. 98.6 98 20 112/62 91% 15L VENTURI NO LABS AVAILABLE IS;VANCOMYCIN IV Q8 HRS ROCEPHIN IV Q24 HRS PEPCID PO BID HEPARIN SUBQ BID DUO NEB HHN Q4 HRS PRN LASIX IV ONCE MED SURG STATUS DCP;FROM HOME CASE MANAGEMENT:REVIEW 01/23/2020 SI;ASPIRATION PNA. PULMONARY VENOUS CONGESTION. FENTANYL OVERDOSE. RHABDOMYOLYSIS. 98.3 85 20 94% 4L NC AST 38 IS;LASIX IV QD VANCOMYCIN IV Q8 HRS ROCEPHIN IV Q24 HRS PEPCID PO BID HEPARIN SUBQ BID DUO NEB HHN Q4 HRS PRN MED SURG STATUS DCP;FROM HOME
[2020-01-23 16:00] VITALS: BP 115/69
--- NOTE | 2020-01-23 19:33 | NUR ---
HAND-OFF: Report given to MATTEO Sheriff.
--- NOTE | 2020-01-23 19:52 | NUR ---
NURSE NOTES: Received patient awake in bed, able to verbalize needs, no s/s of acute distress. NC noted on 3L, patient tolerating well. IV access asymptomatic, dressing dry and intact. Call light and belongings within reach.
[2020-01-23 20:00] VITALS: BP 110/63
--- NOTE | 2020-01-23 23:15 | Progress Note ---
DATE: 01/23/2020 SUBJECTIVE: The patient mentally is improving. However, he is still desaturating and needs to stay in the hospital. He is reluctant to take any other psychotropic medication beside Seroquel in addition. His mother called me from [place] today and wanted to ask about his medical condition. The mother also had questions about the girlfriend's . I referred her to the son as well as the hospital administration. The patient is not endorsing any suicidal ideation, however, he is depressed and still has questions about how the girlfriend in the emergency room. MENTAL STATUS EXAMINATION: The patient is alert and oriented times to self, place, situation, and time. Mood is depressed. Affect is constricted, congruent with mood. Thought process is linear and goal oriented. Thought content, no suicidal or homicidal ideation. Cognition is intact. Insight and judgment is fair. ASSESSMENT: 1. Opiate dependence. 2. Major depressive disorder. PLAN: 1. Continue Seroquel. Encouraged him to change medication from Seroquel to antidepressant. He agreed. 2. The patient is not an imminent danger to self or others. 3. The patient is cleared to be discharged. Jai Estrella M.D. DR: NELIA JOB#: [id number] CC:
[2020-01-24] VITALS: BP 113/80
[2020-01-24] MEDS: Vancomycin 1.5gm/NS Premix q24h IVPB SCH ×3 (02:12→17:13)
--- NOTE | 2020-01-24 02:45 | Progress Note ---
DATE: 01/23/2020 INTERNAL MEDICINE PROGRESS NOTE SUBJECTIVE: Still congested, still hypoxic, but slightly improved. Less short of breath. He was diuresed yesterday. His chest x-ray today is reviewed and notable for right upper lobe infiltrate and consolidation. OBJECTIVE: VITAL SIGNS: Blood pressure 113/72, pulse 82, respirations 20, afebrile, oxygen saturation is 94% on a Venturi mask. LUNGS: Coarse breath sounds. Rhonchi. No accessory muscle use. CARDIAC: Regular rhythm and rate. Normal S1, S2. ABDOMEN: Soft. EXTREMITIES: No edema. Left upper extremity site of phlebitis is slightly less warm, red, and tender. IMPRESSION: 1. Status post fentanyl overdose. 2. Respiratory failure. 3. Aspiration pneumonia. 4. Hypoxia. 5. Acute diastolic congestive heart failure. 6. Phlebitis, left upper extremity due to prior IV site. PLAN: 1. Antimicrobials. 2. Respiratory hygiene. 3. Avoid IV access in the left upper extremity. 4. Taper oxygen requirements. 5. Pulmonary consult appreciated. Fernando Toribio M.D. DR: SHANNA JOB#: [id number] CC:
[2020-01-24 04:00] VITALS: BP 115/85
--- NOTE | 2020-01-24 07:00 | NUR ---
NURSE NOTES: Handoff received from MATTEO Sheriff. Patient received sleeping in bed, no acute signs of distress noted. Patient IV is running TKO. Bed in the low and locked position with call light within reach. Patient is on nasal cannula 2 liters. will continue to monitor.
--- NOTE | 2020-01-24 07:11 | NUR ---
HAND-OFF: Report given to MATTEO Jones.
[2020-01-24 07:51] VITALS: BP 114/63
[2020-01-24 07:51] LABS: ANION GAP 11 mmol/L (5-15); BLOOD UREA NITROGEN 19 mg/dL (7-18); CALCIUM 9.5 MG/DL (8.5-10.1); CARBON DIOXIDE 26 MMOL/L (21-32); CHLORIDE 102 MMOL/L (98-107); CREATININE 0.9 MG/DL (0.55-1.30); POTASSIUM 3.7 MMOL/L (3.5-5.1); SODIUM 139 MMOL/L (136-145)
[2020-01-24] MEDS: Heparin 5000 units/ml inj SUBQ SCH ×2 (09:00→21:00)
[2020-01-24] MEDS: cefTRIAXone 1 GM in D5W 55 ML IVPB SCH (09:26)
[2020-01-24] MEDS: guaiFENesin w/Codeine 5ml Liq ud ORAL PRN ×3 (09:26→18:17)
--- NOTE | 2020-01-24 10:36 | Pulmonology Progress Note ---
Assessment/Plan Assessment/Plan IMPRESSION: 1. Suspect mild pulmonary edema. 2. Hypoxemia. DISCUSSION: Continue breathing treatments and cough suppressants. Off IV fluids; I will provide further diuresis. I will follow carefully. Latest CXR shows bibasilar pneumonia; likely aspiration. Royal Rebolledo M.D. Subjective Interval Events: None new; feeling better Constitutional: Reports: no symptoms HEENT: Repors: no symptoms Respiratory: Reports: no symptoms Cardiovascular: Reports: no symptoms Gastrointestinal/Abdominal: Reports: no symptoms Allergies: Coded Allergies: No Known Allergies (Unverified , 01/18/20) Objective Last 24 Hour Vital Signs Date Time Temp Pulse Resp B/P (MAP) Pulse Ox O2 Delivery O2 Flow Rate FiO2 01/24/20 08:15 96 Nasal Cannula 4.0 36 01/24/20 08:15 82 18 96 Nasal Cannula 4.0 36 01/24/20 07:51 98.1 78 19 114/63 (80) 96 01/24/20 04:00 98.1 80 18 115/85 (95) 96 01/24/20 00:00 98.3 82 18 113/80 (91) 96 01/23/20 20:59 Nasal Cannula 3.0 Venturi Mask 15.0 01/23/20 20:00 98.1 94 18 110/63 (79) 18 01/23/20 19:55 95 Nasal Cannula 4.0 36 01/23/20 19:55 88 20 95 Nasal Cannula 4.0 36 01/23/20 16:00 97.8 87 18 115/69 (84) 18 01/23/20 12:00 98.3 82 20 113/72 (86) 96 Intake and Output 01/23/20 01/24/20 19:00 07:00 # Voids 2 General Appearance: no acute distress HEENT: normocephalic Respiratory/Chest: chest wall non-tender, lungs clear Cardiovascular: normal peripheral pulses Abdomen: normal bowel sounds Microbiology Date/Time Source Procedure Growth Status 01/22/20 18:00 Sputum Gram Stain - Final Resulted 01/22/20 18:00 Sputum Sputum Culture Pending Resulted Laboratory Tests 01/23/20 17:00: Vancomycin Level Trough 19.2H 01/24/20 07:07: Sodium Level 139, Potassium Level 3.7, Chloride Level 102, Carbon Dioxide Level 26, Anion Gap 11, Blood Urea Nitrogen 19H, Creatinine 0.9, Estimat Glomerular Filtration Rate > 60, Glucose Level 98, Calcium Level 9.5 Current Medications Medications (Trade) Dose Ordered Sig/Armando Route PRN Reason Start Time Stop Time Status Last Admin Dose Admin Albuterol/ Ipratropium (Albuterol/ Ipratropium) 3 ml Q4H PRN HHN Shortness of Breath 01/20/20 15:24 01/25/20 15:23 01/23/20 09:23 Ceftriaxone Sodium 1 gm/ Dextrose 55 ml @ 110 mls/hr Q24H IVPB 01/21/20 09:00 01/25/20 06:59 01/24/20 09:26 Famotidine (Pepcid) 20 mg BID ORAL 01/21/20 09:00 04/20/20 08:59 01/24/20 09:26 Furosemide (Lasix) 40 mg DAILY IV 01/23/20 11:30 02/22/20 11:29 01/24/20 09:26 Guaifenesin/ Codeine Phosphate (Robitussin with codeine) 5 ml Q4H PRN ORAL For Cough 01/20/20 15:24 02/19/20 15:23 01/24/20 09:26 Heparin Sodium (Porcine) (Heparin 5000 units/ml) 5,000 units EVERY 12 HOURS SUBQ 01/20/20 21:00 03/03/20 08:59 Quetiapine Fumarate (SEROqueL) 50 mg BEDTIME ORAL 01/20/20 21:00 03/04/20 20:59 01/23/20 20:39 Vancomycin HCl (Vanco rx to dose) 1 ea DAILY PRN MISC Per rx protocol 01/22/20 16:45 02/21/20 16:44 Vancomycin/Sodium Chloride 275 ml @ 137.5 mls/ hr Q8H IVPB 01/22/20 18:00 01/27/20 17:59 01/24/20 02:12 Royal Rebolledo MD Jan 24, 2020 10:36
[2020-01-24 12:00] VITALS: BP 122/82
--- NOTE | 2020-01-24 13:45 | NUR ---
INSURANCE UPDATED CLINICALS HAVE BEEN FAXED TO: IPA: [facility] P: [phone] F: [phone] (FAX ALL CLINICALS)
--- NOTE | 2020-01-24 14:15 | NUR ---
CASE MANAGEMENT:REVIEW SI;PULMONARY EDEMA. PNA. HYPOXEMIA. AC CHF. 98.6 89 20 113/80 96% 4L NC FIO2 @ 36% BUN 19 IS;LASIX IV QD VANCOMYCIN IV Q8 HRS ROCEPHIN IV Q24 HRS PEPCID PO BID HEPARIN SUBQ Q12 HRS DUO NEB HHM Q4 HRS PRN MED SURG STATUS DCP;FROM HOME PLAN;DIURESES ANTIMICROBIALS TAPER O2
[2020-01-24 16:00] VITALS: BP 128/84
--- NOTE | 2020-01-24 19:24 | NUR ---
HAND-OFF: Report given to MATTEO Zamora.
--- NOTE | 2020-01-24 19:38 | NUR ---
NURSE NOTES: Patient awake, alert, and verbally responsive. Breathing unlabored on 3L O2 via NC. Denies pain or discomfort except for coughing episodes. Will provide appropriate management as prescribed. IV noted on right hand intact, dry, clean, an patent running atb. Bed placed at the lowest with alarm, brake, and siderails up for safety. call light placed within reach. Will continue to monitor.
[2020-01-24 20:00] VITALS: BP 121/75
--- NOTE | 2020-01-24 23:00 | Progress Note ---
DATE: 01/24/2020 INTERNAL MEDICINE PROGRESS NOTE SUBJECTIVE: The patient has less shortness of breath and congestion. Still with cough and now with sputum production. Sputum culture is pending. COVID-19 is negative. PHYSICAL EXAMINATION: VITAL SIGNS: Blood pressure 123/82, pulse 89, respirations 20. LUNGS: With coarse breath sounds and rhonchi. No wheezing. CARDIOVASCULAR: Regular rhythm and rate. Normal S1, S2. ABDOMEN: Soft. EXTREMITIES: No edema. IMPRESSION: 1. Aspiration pneumonia. 2. Fentanyl overdose. 3. Hypoxia. 4. Acute diastolic congestive heart failure. 5. Mild protein-calorie malnutrition. PLAN: 1. Continue antimicrobials. 2. Await sputum cultures. 3. Nasal oxygen with taper as able. 4. Negative fluid balance. 5. DVT prophylaxis. 6. Respiratory hygiene and bronchodilators. 7. Psychiatric followup as needed. Fernando Toribio M.D. DR: NATALI JOB#: [id number] CC:
--- NOTE | 2020-01-24 23:03 | Psych Consult Progress Note ---
Psychiatry Progress Note Psychiatry Progress Note Medications Current Medications Medications (Trade) Dose Ordered Sig/Armando Route PRN Reason Start Time Stop Time Status Last Admin Dose Admin Albuterol/ Ipratropium (Albuterol/ Ipratropium) 3 ml Q4H PRN HHN Shortness of Breath 01/20/20 15:24 01/25/20 15:23 01/23/20 09:23 Ceftriaxone Sodium 1 gm/ Dextrose 55 ml @ 110 mls/hr Q24H IVPB 01/21/20 09:00 01/29/20 08:59 01/24/20 09:26 Famotidine (Pepcid) 20 mg BID ORAL 01/21/20 09:00 04/20/20 08:59 01/24/20 17:13 Furosemide (Lasix) 40 mg DAILY IV 01/23/20 11:30 02/22/20 11:29 01/24/20 09:26 Guaifenesin/ Codeine Phosphate (Robitussin with codeine) 5 ml Q4H PRN ORAL For Cough 01/20/20 15:24 02/19/20 15:23 01/24/20 18:17 Heparin Sodium (Porcine) (Heparin 5000 units/ml) 5,000 units EVERY 12 HOURS SUBQ 01/20/20 21:00 03/03/20 08:59 Quetiapine Fumarate (SEROqueL) 50 mg BEDTIME ORAL 01/20/20 21:00 03/04/20 20:59 01/24/20 21:11 Vancomycin HCl (Vanco rx to dose) 1 ea DAILY PRN MISC Per rx protocol 01/22/20 16:45 02/21/20 16:44 Vancomycin/Sodium Chloride 275 ml @ 137.5 mls/ hr Q8H IVPB 01/22/20 18:00 01/27/20 17:59 01/24/20 17:13 Neurological/Psychiatric: Reports: anxiety, depressed, emotional problems, weakness Allergies: Coded Allergies: No Known Allergies (Unverified , 01/18/20) Objective Data Height (Feet): 6 Height (Inches): 0.00 Weight (Pounds): 295 General Appearance: no apparent distress, alert, alert oriented x3 Appearance: no abnormalities noted Behavior Mannerisms: good eye contact Mental Status Exam - Affect: constricted Mental Status Exam - Mood: depressed Speech: clear Mental Status Exam - Thought P: logical, goal-directed Mental Status Exam - Suicidal: not present Additional Comments: Alert and oriented times self, place, situation, and date. Mood is depressed. Affect is blunted, congruent with mood. Thought process is concrete. Thought content, no suicidal or homicidal ideation. Cognition is intact. Insight and judgment are fair. ASSESSMENT: 1. Major depressive disorder. 2. Substance use disorder. PLAN: 1. The patient will continue Seroquel 50 at bedtime. 2. He does not want to take any antidepressant. Jai Estrella MD Jan 24, 2020 23:03
[2020-01-25] VITALS: BP 120/68
[2020-01-25] MEDS: guaiFENesin w/Codeine 5ml Liq ud ORAL PRN ×4 (00:39→18:17)
[2020-01-25] MEDS: Vancomycin 1.5gm/NS Premix q24h IVPB SCH ×3 (02:16→17:57)
[2020-01-25 04:00] VITALS: BP 128/72
--- NOTE | 2020-01-25 07:30 | NUR ---
HAND-OFF: Report given to MATTEO Davenport. Plan of care endorsed.
--- NOTE | 2020-01-25 07:31 | NUR ---
NURSE NOTES: Received patient in bed, asleep but easily awake. Patient is on oxygen with NC. Breathing is even and unlabored. Denies pain or discomfort. Call light within reach. Will continue plan of care.
[2020-01-25 08:00] VITALS: BP 112/69
--- NOTE | 2020-01-25 08:45 | Pulmonology Progress Note ---
Assessment/Plan Assessment/Plan IMPRESSION: 1. Mild pulmonary edema. 2. Hypoxemia. 3. Aspiration pneumonia DISCUSSION: Continue breathing treatments and cough suppressants. Off IV fluids; I will provide further diuresis. I will follow carefully. Latest CXR shows bibasilar pneumonia; likely aspiration. Royal Rebolledo M.D. Subjective Interval Events: None new Constitutional: Reports: no symptoms HEENT: Repors: no symptoms Respiratory: Reports: no symptoms Cardiovascular: Reports: no symptoms Allergies: Coded Allergies: No Known Allergies (Unverified , 01/18/20) Objective Last 24 Hour Vital Signs Date Time Temp Pulse Resp B/P (MAP) Pulse Ox O2 Delivery O2 Flow Rate FiO2 01/25/20 08:00 97.8 78 20 112/69 (83) 97 01/25/20 04:00 98.0 80 19 128/72 (90) 97 01/25/20 00:00 98.0 88 19 120/68 (85) 96 01/24/20 21:28 96 Nasal Cannula 4.0 36 01/24/20 21:28 92 20 96 Nasal Cannula 4.0 36 01/24/20 21:00 Nasal Cannula 3.0 01/24/20 20:00 98.1 89 19 121/75 (90) 95 01/24/20 16:00 98.8 76 19 128/84 (99) 96 01/24/20 12:00 98.6 89 20 122/82 (95) 97 01/24/20 09:00 Nasal Cannula 3.0 Intake and Output 01/24/20 01/25/20 19:00 07:00 Intake Total 275.0 ml Balance 275.0 ml IV Total 275.0 ml # Voids 3 1 # Bowel Movements 1 General Appearance: no acute distress HEENT: normocephalic Respiratory/Chest: chest wall non-tender Cardiovascular: normal peripheral pulses Abdomen: normal bowel sounds Microbiology Date/Time Source Procedure Growth Status 01/22/20 18:00 Sputum Gram Stain - Final Complete 01/22/20 18:00 Sputum Sputum Culture - Final NORMAL UPPER RESPIRATORY NEAL PRESENT Complete Current Medications Medications (Trade) Dose Ordered Sig/Armando Route PRN Reason Start Time Stop Time Status Last Admin Dose Admin Albuterol/ Ipratropium (Albuterol/ Ipratropium) 3 ml Q4H PRN HHN Shortness of Breath 01/20/20 15:24 01/25/20 15:23 01/23/20 09:23 Ceftriaxone Sodium 1 gm/ Dextrose 55 ml @ 110 mls/hr Q24H IVPB 01/21/20 09:00 01/29/20 08:59 01/24/20 09:26 Famotidine (Pepcid) 20 mg BID ORAL 01/21/20 09:00 04/20/20 08:59 01/24/20 17:13 Furosemide (Lasix) 40 mg DAILY IV 01/23/20 11:30 02/22/20 11:29 01/24/20 09:26 Guaifenesin/ Codeine Phosphate (Robitussin with codeine) 5 ml Q4H PRN ORAL For Cough 01/20/20 15:24 02/19/20 15:23 01/25/20 00:39 Heparin Sodium (Porcine) (Heparin 5000 units/ml) 5,000 units EVERY 12 HOURS SUBQ 01/20/20 21:00 03/03/20 08:59 Quetiapine Fumarate (SEROqueL) 50 mg BEDTIME ORAL 01/20/20 21:00 03/04/20 20:59 01/24/20 21:11 Vancomycin HCl (Vanco rx to dose) 1 ea DAILY PRN MISC Per rx protocol 01/22/20 16:45 02/21/20 16:44 Vancomycin/Sodium Chloride 275 ml @ 137.5 mls/ hr Q8H IVPB 01/22/20 18:00 01/27/20 17:59 01/25/20 02:16 Royal Rebolledo MD Jan 25, 2020 08:45
[2020-01-25] MEDS ORDERED: Furosemide 40mg tab ORAL SCH (09:00)
[2020-01-25] MEDS: Heparin 5000 units/ml inj SUBQ SCH (09:00)
[2020-01-25] MEDS: cefTRIAXone 1 GM in D5W 55 ML IVPB SCH (09:36)
--- NOTE | 2020-01-25 11:21 | NUR ---
CASE MANAGEMENT:REVIEW SI;ASPIRATION PNA. PULMONARY EDEMA. HYPOXEMIA. 98.0 92 20 112/69 96% 4L NC FIO2 @ 36% NO LABS AVAILABLE IS;LASIX PO QD VANCOMYCIN IV Q8 HRS ROCEPHIN IV QD PEPCID PO BID ROBERTO NEB HHN Q4 HRS ROBITUSSIN PO Q4 HRS PRN MED SURG STATUS DCP;FROM HOME PLAN;DIURESIS ANTIMICROBIALS TAPER OXYGEN
[2020-01-25 11:54] VITALS: BP 129/82
--- NOTE | 2020-01-25 13:30 | NUR ---
NURSE NOTES: Patient asked RN to call the doctor. Patient wants to know if he is gong to be discharged today. RN called Dr. Toribio's office and tax expert said Dr. Toribio would make round later after office hour. RN let patient know.
--- NOTE | 2020-01-25 14:40 | NUR ---
NURSE NOTES: patient came back from surgery, patient is lethargic but easily arousable and follows commands. PT able to move his legs, able to say his name right. no s/s of neurological deficit or pain @ this time. V/S stable. BP 136/94, pulse is 67, o2sat is 98% and afebrile. Breathing is even and unlabored. Patient's dill is draining yellowish urine and noted with abduction pillow and SCD's on left leg only.right hip surgical site noted with clean and dry dressing. IV is intact. Will continue to follow doctor's order and monitor patient. Addendum: 01/25/20 at 1628 by KIMBERLEE AUSTIN RN Wrong entry.Wrong patient.
--- NOTE | 2020-01-25 14:45 | NUR ---
INSURANCE UPDATED CLINICALS HAVE BEEN FAXED TO: IPA: [facility] P: [phone] F: [phone] (FAX ALL CLINICALS)
[2020-01-25 16:00] VITALS: BP 127/77
--- NOTE | 2020-01-25 18:00 | NUR ---
NURSE NOTES: patient was seen by Dr. Toribio, Dr. Toribio said patient can be discharged after due vancomycin, RN hung Vancomycin IVPB and patient said his father will pick hip up. Prescription in the chart.
--- NOTE | 2020-01-25 19:43 | NUR ---
HAND-OFF: Report given to Jane and endorsed to discharge patient once IVPB vancomycin is done.
[2020-01-25 20:30] VITALS: BP 113/49
--- NOTE | 2020-01-25 20:38 | NUR ---
NURSE NOTES: Patient discharged to home via ambulation at 2030. ANO x4, breathing room air with no signs of distress or SOB. No c/o pain. All patient's belongings sent home with patient. Belongings sheet signed. Identification bracelet removed. IV access removed. Discharge packet and prescription medication given to patient. Father picking up outside. Addendum: 01/25/20 at 2109 by SLOAN SANTOS RN Per AM nurse, patient was monitored off oxygen and had an O2 saturation of 95-98%. Patient's O2 sat was 96% off oxygen prior to discharge.
--- NOTE | 2020-01-25 23:19 | Psych Consult Progress Note ---
Psychiatry Progress Note Psychiatry Progress Note Neurological/Psychiatric: Reports: anxiety, depressed, emotional problems Allergies: Coded Allergies: No Known Allergies (Unverified , 01/18/20) Objective Data Height (Feet): 6 Height (Inches): 0.00 Weight (Pounds): 295 General Appearance: WD/WN, no apparent distress, alert, alert oriented x3 Appearance: disheveled Mental Status Exam - Affect: blunted Mental Status Exam - Mood: depressed Speech: clear Mental Status Exam - Thought P: no abnormalities, logical, goal-directed, coherent Mental Status Exam - Suicidal: not present Additional Comments: Alert and oriented times self, place, situation, and date. Mood is depressed. Affect is blunted, congruent with mood. Thought process is concrete. Thought content, no suicidal or homicidal ideation. Cognition is intact. Insight and judgment are fair. Assessment/Plan [place] I: ASSESSMENT: 1. Major depressive disorder. 2. Substance use disorder. PLAN: 1. The patient will continue Seroquel 50 at bedtime. 2. He does not want to take any antidepressant. Jai Estrella MD Jan 25, 2020 23:19
--- NOTE | 2020-01-26 14:18 | NUR ---
INSURANCE NO DISCHARGE SUMMARY IN THE SYTEM UNABLE TO FAX IPA: [facility] [place] P: [phone] F: [phone] (FAX ALL CLINICALS)
--- NOTE | 2020-01-26 16:59 | Discharge Summary ---
Discharge Summary Discharge Summary _ DATE OF ADMISSION: 01/18/2020 DATE OF DISCHARGE: 01/25/2020 DISCHARGED BY: REASON FOR ADMISSION: 29 years old male with no significant past medical history, was brought to emergency room by paramedics. Paramedics were called by patient's girlfriend. Patient apparently was using fentanyl and was poorly responsive. The girlfriend tried to administer Narcan unsuccessfully. Patient subsequently was placed on the back -to-valve mask by paramedics , received Narcan with improved respiratory parameters and presented to emergency room already alert and responsive. Upon evaluation patient was tachycardic and hypoxic, requiring Ventimask. Laboratory work-up revealed leukocytosis with WBC 19 , stable hemoglobin , hematocrit and platelet count. ABUN 22, creatinine 2.0. Glucose 204. Lactic acid 3.1 repeated 1.1. AST 167 ALT 85. Total CK 3718. Urine toxicology screen was negative. Serum level for alcohol , Tylenol and salicylate was negative. Urinalysis revealed +3 protein , no evidence of urinary tract infection. Chest x-ray demonstrated moderate left pneumonia. In emergency department patient started on the IV fluids, pancultured , started on empiric antibiotic and admitted for further management CONSULTANTS: pulmonary Dr. Rebolledo psychiatrist [facility] COURSE: Patient admitted to monitored floor. Supplemental oxygen provided and titrated to keep pulse oximetry above 92%. Patient started on the IV hydration and empiric antibiotic. DVT and GI prophylaxis provided. Patient was followed-up with chest x-ray. Patient initially was on nonrebreather mask and as he clinically improved, he was able to be weaned down to Venturi mask and then to oxygen via nasal cannula. Prior to discharge pulse oximetry stable on room air. Patient also had evidence of pulmonary edema. Diuresis provided with close monitoring of volumes and cardiorenal parameters with goal to have a negative balance. Antitussive provided as needed. Blood cultures were negative Urine culture was negative. Patient was ruled out for COVID 19. Sputum culture was negative. Renal parameters and electrolytes were closely monitored, electrolytes corrected as needed , and nephrotoxins were avoided. Creatinine down to 0.9 prior to discharge. LFT were closely monitored and on discharge AST 38 ALT 52. CK trended down to 817. Psychiatrist seen and evaluated patient. Per psychiatrist patient had major depressive disorder and substance abuse disorder. Patient declined any antidepressant. Patient started on Seroquel. Patient clinically stabilized and was ready for discharge. FINAL DIAGNOSES: Hypoxemic respiratory failure secondary to fentanyl overdose- resolved Aspiration pneumonia Acute diastolic congestive heart failure Acute renal failure-resolved Lactic acidosis Transaminitis -resolved Rhabdomyolysis -resolved Major depressive disorder Substance use disorder \ DISCHARGE MEDICATIONS: See Medication Reconciliation list. DISCHARGE INSTRUCTIONS: Patient was discharged home. Patient to follow-up with her primary care provider in 1 to 2 weeks. Patient was counseled on abstinence from illicit street drugs. I have been assigned to dictate discharge summary for this account. I was not involved in the patient's management. Keira Watters [employer] Jan 26, 2020 16:59
--- NOTE | 2020-01-27 13:47 | NUR ---
INSURANCE DISCHARGE SUMMARY HAS BEEN FAXED TO: IPA: [facility] P: [phone] F: [phone] (FAX ALL CLINICALS)
== END 2020-01-25 20:30 | disposition home or self-care (01) | DRG 812 ==
LOC: EDBD 01:51 → EMR 02:15 → UNDOADMIN 02:22 → 2E 02:22 → 2W 02:29 → EDBEDREQ 04:13 → 2W 14:47 → 4E 01-20 15:15
PROC: 0BH17EZ Insertion of Endotracheal Airway into Trachea, Via Natural or Artificial Opening (ICD-10-PCS; principal; 2020-01-18)
DX: T40.4X1A Poisoning by other synthetic narcotics, accidental (unintentional), initial encounter (principal); J69.0 Pneumonitis due to inhalation of food and vomit; J96.91 Respiratory failure, unspecified with hypoxia; F11.229 Opioid dependence with intoxication, unspecified; R00.0 Tachycardia, unspecified; N17.9 Acute kidney failure, unspecified; M62.82 Rhabdomyolysis; F43.20 Adjustment disorder, unspecified; E87.2 Acidosis; E44.1 Mild protein-calorie malnutrition; F32.9 Major depressive disorder, single episode, unspecified; T80.1XXA Vascular complications following infusion, transfusion and therapeutic injection, initial encounter; I50.31 Acute diastolic (congestive) heart failure
CPT/HCPCS: 36415; 36600; 71045; 80048; 80053; 80202; 80307; 81003; 82550; 82600; 82803; 83036; 83605; 83735; 83880; 84443; 84484; 85007; 85025; 87040; 87070; 87086; 87205; 93005; 94640; 94664; 96361; 96365; 96366; 96367; 96368; 99285; G0480; J7030; J7620; J8499